=== PATIENT | male | born 1995 ===

== ENCOUNTER 2018-05-17 23:08 | Emergency (ER) | payer OTHER ==
[2018-05-17] MEDS ORDERED: Acetaminophen 500 MG TAB ONE (23:40)
[2018-05-17] MEDS ORDERED: Diazepam 5 MG TAB ONE (23:40)
== END 2018-05-18 01:27 ==
LOC: MADERS 23:08 → EEVIPCON 23:08 → MADERS 05-18 01:27
DX: G40.909 Epilepsy, unspecified, not intractable, without status epilepticus (principal); F41.9 Anxiety disorder, unspecified; F32.9 Major depressive disorder, single episode, unspecified; F20.9 Schizophrenia, unspecified
CPT/HCPCS: 99284